=== PATIENT | male | born 1980 | race African-American/Black ===

== ENCOUNTER 2020-07-04 14:38 | Emergency (ER) | payer MEDICAID ==
[~2020-07-04] VITALS: Ht 182.9 cm; Wt 84.8 kg
[2020-07-04] MEDS ORDERED: QUETIAPINE FUM200 MG ORAL (14:48)
[2020-07-04] MEDS ORDERED: SERTRALINE HCL50 MG ORAL (14:48)
[2020-07-04 14:50] VITALS: BP 122/74
--- NOTE | 2020-07-04 15:09 | Emergency Room Report ---
History of Present Illness General Chief Complaint: Suicidal Source: Patient Present Illness HPI 40-year-old male with history of schizophrenia here with suicidal ideation. Patient says that he has a plan to kill himself by shooting himself with a gun. Patient does not however own a gun. Patient is supposed to be taking Seroquel , however he ran out of his medications weeks ago and recently moved to [place] from [place]. He has been living on the streets. Says he drinks alcohol and uses crystal meth, but has not used either in approximately 1 week. Denies fevers, chills, chest pain, palpitations, shortness of breath, back pain, abdominal pain, nausea, vomiting, diarrhea, dysuria. Allergies: Coded Allergies: No Known Allergies (Unverified , 07/04/20) COVID-19 Screening Contact w/high risk pt: No Experienced COVID-19 symptoms?: No COVID-19 Testing performed SENIOR ENGINEER: No Nursing Documentation-PMH History Of Psychiatric Problem: Yes - depression, schizoprenia Review of Systems All Other Systems: negative except mentioned in HPI Physical Exam Vital Signs Date Time Temp Pulse Resp B/P (MAP) Pulse Ox O2 Delivery O2 Flow Rate FiO2 07/04/20 14:43 98.4 75 18 122/74 (90) 96 Room Air Sp02 EP Interpretation: reviewed, normal General Appearance: no apparent distress, alert, GCS 15, non-toxic Head: normocephalic, atraumatic Eyes: bilateral eye normal inspection, bilateral eye PERRL ENT: hearing grossly normal, normal pharynx, no angioedema, normal voice Neck: full range of motion, supple/symm/no masses Respiratory: chest non-tender, lungs clear, normal breath sounds, speaking full sentences Cardiovascular #1: regular rate, rhythm, no edema Cardiovascular #2: 2+ carotid (R), 2+ carotid (L), 2+ radial (R), 2+ radial (L) , 2+ dorsalis pedis (R), 2+ dorsalis pedis (L) Gastrointestinal: normal bowel sounds, non tender, soft, non-distended, no guarding, no rebound Rectal: deferred Genitourinary: normal inspection, no CVA tenderness Musculoskeletal: back normal, normal range of motion, calf tenderness, gait/ station normal, non-tender Neurologic: alert, motor strength/tone normal, oriented x3, sensory intact, responsive, speech normal Psychiatric: judgement/insight normal, memory normal, mood/affect normal, no suicidal/homicidal ideation Reflexes: 3+ bicep (R), 3+ bicep (L), 3+ tricep (R), 3+ tricep (L), 3+ knee (R) , 3+ knee (L) Lymphatic: no adenopathy Medical Decision Making ER Course 40-year-old male here with suicidal ideation. Patient tolerating p.o. without any difficulty in the emergency department and appears nontoxic and in no acute distress whatsoever. Has homicidal ideation and a plan to shoot himself. No homicidal ideation. Admits to hearing voices that are telling him to harm himself. Patient was medically cleared. Currently awaiting placement. Last Vital Signs Date Time Temp Pulse Resp B/P (MAP) Pulse Ox O2 Delivery O2 Flow Rate FiO2 07/04/20 14:43 98.4 75 18 122/74 (90) 96 Room Air Referrals: NOT CHOSEN NOMAN/,REFERRING (PCP) Israel Mcdonnell M.D. Jul 04, 2020 15:09
[2020-07-04 16:04] LABS: BASOPHILS % (AUTO) 1.3 % (0.0-2.0); EOSINOPHILS % (AUTO) 2.5 % (0.0-3.0); HEMATOCRIT 37.7 % (42.0-52.0); HEMOGLOBIN 12.7 G/DL (14.2-18.0); LYMPHOCYTES % (AUTO) 33.3 % (20.0-45.0); MEAN CORPUSCULAR VOLUME 92 FL (80-99); MONOCYTES % (AUTO) 7.8 % (1.0-10.0); NEUTROPHILS % (AUTO) 55.2 % (45.0-75.0); PLATELET COUNT 243 K/UL (150-450); RED BLOOD COUNT 4.12 M/UL (4.70-6.10); RED CELL DISTRIBUTION WIDTH 12.5 % (11.6-14.8); WHITE BLOOD COUNT 5.9 K/UL (4.8-10.8)
[2020-07-04 16:25] LABS: ANION GAP 5 mmol/L (5-15); BLOOD UREA NITROGEN 23 mg/dL (7-18); CALCIUM 8.7 MG/DL (8.5-10.1); CARBON DIOXIDE 30 MMOL/L (21-32); CHLORIDE 104 MMOL/L (98-107); CREATININE 1.1 MG/DL (0.55-1.30); POTASSIUM 3.7 MMOL/L (3.5-5.1); SODIUM 139 MMOL/L (136-145)
[2020-07-04 16:29] LABS: ALANINE AMINOTRANSFERASE 26 U/L (12-78); ALBUMIN 3.5 G/DL (3.4-5.0); ALBUMIN/GLOBULIN RATIO 1.2 (1.0-2.7); ALKALINE PHOSPHATASE 35 U/L (46-116); ASPARTATE AMINO TRANSFERASE 15 U/L (15-37); BILIRUBIN,TOTAL 0.4 MG/DL (0.2-1.0)
[2020-07-04 16:45] VITALS: BP 124/72
[2020-07-04 18:22] VITALS: BP 127/78
[2020-07-04 19:00] VITALS: BP 125/71
[2020-07-04 23:00] VITALS: BP_SYST 128; BP_SYST 132; BP_DIAS 78; BP_DIAS 82
[2020-07-05] VITALS (9 sets, daily range): BP systolic 115–133; BP diastolic 68–87
[2020-07-06 02:00] VITALS: BP 119/88
[2020-07-06 06:25] VITALS: BP 123/73
[2020-07-06 14:49] VITALS: BP 128/69
--- NOTE | 2020-07-06 19:15 | Consultation ---
DATE OF CONSULTATION: 07/06/2020 HISTORY OF PRESENT ILLNESS: The patient is a 40-year-old black male with a history of polysubstance dependence, who has been admitted to the hospital suicidal thoughts. The patient has used multiple drugs including PCP, crystal meth, and cocaine. The patient was laughing appropriately during the evaluation. He stated that he wanted us to transfer him to a psychiatric hospital. The patient stated that he is not suicidal currently, but he needs to stay in the hospital. Staff has had difficulty placing the patient. The patient is not on 5150. The patient is calm, manageable. PAST PSYCHIATRIC HISTORY: Significant for depression, psychotic disorder. PAST MEDICAL HISTORY: Nonsignificant. ALLERGIES: No known drug allergies. SUBSTANCE USE HISTORY: As I mentioned, meth, cocaine, marijuana. MENTAL STATUS EXAMINATION: Alert and oriented x4. Mood is neutral. Affect is full range, congruent with mood. Thought process is linear and goal oriented. Thought content, there is no suicidal or homicidal ideation. No delusions. No AVH. Cognition is intact. Insight and judgment is fair. ASSESSMENT: [place] I Polysubstance dependence [place] II Deferred. [place] III None. [place] IV Homelessness. [place] V 50 PLAN: 1. The patient is not an imminent danger to self or others; therefore, he does not benefit from 5150. 2. Provide the patient with reality orientation. 3. The patient can be discharged. Angelina Crow M.D. DR: Millie JOB#: [id number] CC:
== END 2020-07-06 14:50 | disposition home or self-care (01) ==
LOC: EMR 14:46
DX: F15.20 Other stimulant dependence, uncomplicated (principal); F14.20 Cocaine dependence, uncomplicated; F12.20 Cannabis dependence, uncomplicated; Z59.0 Homelessness; F32.9 Major depressive disorder, single episode, unspecified; F29 Unspecified psychosis not due to a substance or known physiological condition; F20.9 Schizophrenia, unspecified
CPT/HCPCS: 36415; 80053; 80307; 85025; G0480; G0481; U0002; Z7502; 99284